=== PATIENT | female | born 2000 | race Caucasian/White ===

== ENCOUNTER 2019-04-27 20:56 | Emergency (ER) | payer MEDICAID ==
[2019-04-27] MEDS: hydrOXYzine HCL 25 MG TAB PO (22:28)
[2019-04-27 23:11] LABS: FREE T4 (FREE THYROXINE) 1.04 ng/dl (0.79-2.35)
[2019-05-01 21:46] LABS: TSH RECEPTOR ANTIBODY <1 (< OR = 16)
== END 2019-04-27 23:40 | disposition home or self-care (01) ==
LOC: FTE 20:56
DX: O26.891 Other specified pregnancy related conditions, first trimester (principal); R00.2 Palpitations; R00.0 Tachycardia, unspecified; Z3A.01 Less than 8 weeks gestation of pregnancy
CPT/HCPCS: 84235; 84439; 93005; 99284-25

== ENCOUNTER 2019-05-15 18:21 | Emergency (ER) | payer MEDICAID | END 2019-05-15 20:00 | disposition home or self-care (01) | LOC: FTE 18:21 | DX: L03.311 Cellulitis of abdominal wall (principal); T81.41XA Infection following a procedure, superficial incisional surgical site, initial encounter; Y82.8 Other medical devices associated with adverse incidents | CPT/HCPCS: 99283; Z7502 ==